=== PATIENT | female | born 1950 | race Caucasian/White ===

== ENCOUNTER 2017-03-04 10:39 | Emergency (ER) | payer MEDICARE, OTHER ==
[~2017-03-04] VITALS: Ht 160 cm; Wt 98.4 kg
[~2017-03-04 10:39] MED LIST: METFORMIN500 MG PO; POLYTRIM 1000010 ML OPH; TOPROL XL25 MG PO
[2017-03-04] MEDS ORDERED: AMARYL2 MG PO (10:48)
[2017-03-04] MEDS ORDERED: VITAMIN D32000 UNI1 PO (10:48)
[2017-03-04] MEDS ORDERED: CLOTRIMAZOLE V (10:49)
[2017-03-04] MEDS ORDERED: ZOLOFT25 MG PO (10:49)
[2017-03-04] MEDS ORDERED: DOXYCYCLINE100 M3 PO (10:50)
[2017-03-04] MEDS ORDERED: BETAMETHASONE D0.05% (10:50)
[2017-03-04] MEDS ORDERED: BACTROBAN OINT0.9 GM T (10:50)
[2017-03-04] MEDS ORDERED: PREDNISONE5 MG PO (10:51)
[2017-03-04] MEDS ORDERED: CIPRODEX 0.3%-7.5 ML OT (10:59)
== END 2017-03-04 11:50 | disposition home or self-care (01) ==
LOC: ED 10:39
DX: H10.9 Unspecified conjunctivitis (principal); Z88.0 Allergy status to penicillin; Z79.899 Other long term (current) drug therapy

== ENCOUNTER 2019-08-30 09:20 | Emergency (ER) | payer MEDICARE, OTHER ==
[~2019-08-30] VITALS: Ht 160 cm; Wt 91.6 kg
[~2019-08-30 09:20] MED LIST changes: +AMARYL2 MG PO; +BACTROBAN OINT0.9 GM T; +BETAMETHASONE D0.05%; +CIPRODEX 0.3%-7.5 ML OT; +CLOTRIMAZOLE V; +DOXYCYCLINE100 M3 PO; +PREDNISONE5 MG PO; +VITAMIN D32000 UNI1 PO; +ZOLOFT25 MG PO
[2019-08-30] MEDS ORDERED: KEFLEX500 M1 PO (10:02)
[2019-08-30] MEDS ORDERED: BLEPH OPH (10:02)
== END 2019-08-30 10:20 | disposition home or self-care (01) ==
LOC: ED 09:20
DX: L03.213 Periorbital cellulitis (principal); Z88.0 Allergy status to penicillin; Z79.2 Long term (current) use of antibiotics; Z79.899 Other long term (current) drug therapy

== ENCOUNTER → 2023-05-05 | Outpatient (CLI) | payer OTHER ==
[~2023-05-05] MED LIST changes: +BLEPH OPH; +KEFLEX500 M1 PO
== END | disposition home or self-care (01) ==
LOC: RESCLI 14:43
PROVIDERS: ATTEND Internal Medicine
DX: E11.9 Type 2 diabetes mellitus without complications (principal); L30.9 Dermatitis, unspecified; E11.40 Type 2 diabetes mellitus with diabetic neuropathy, unspecified; I10 Essential (primary) hypertension; M19.90 Unspecified osteoarthritis, unspecified site; K21.9 Gastro-esophageal reflux disease without esophagitis; E78.5 Hyperlipidemia, unspecified; Z88.0 Allergy status to penicillin; Z79.899 Other long term (current) drug therapy

== ENCOUNTER 2023-12-07 18:14 | Emergency (ER) | payer OTHER ==
[~2023-12-07] VITALS: Ht 165.1 cm; Wt 85.3 kg
[2023-12-07] MEDS ORDERED: ACETAMINOPHEN 325 MG TAB PO ONE (18:55)
[2023-12-07] MEDS ORDERED: Cyclobenzaprine Hydrochlorid 10 MG TAB PO ONE (18:55)
[2023-12-07] MEDS ORDERED: methylPREDNISolone sod succ 125 MG VIAL IM ONE (18:55)
[2023-12-07 19:30] LABS: BILIRUBIN Negative (Negative); BLOOD Negative (Negative); CLARITY Clear (Clear); COLOR Yellow (Yellow); GLUCOSE 3+ (Negative); KETONE Negative (Negative); LEUKO ESTERASE Trace (Negative); NITRITE Negative (Negative); PH 5.5 (4.5-8.0); SPECIFIC GRAVITY >= 1.030 (1.001-1.030); UROBILINOGEN 0.2 E.U./dl (0.0-1.0)
[2023-12-07 19:42] LABS: BACTERIA 1+; RBC 0-2 rbc/hpf (0-2); WBC 16-20 wbc/hpf (0-5)
[2023-12-07] MEDS ORDERED: PREDNISONE10 MG PO (20:02)
[2023-12-07] MEDS ORDERED: CYCLOBENZAPRINE5 M3 PO (20:02)
== END 2023-12-07 20:08 | disposition home or self-care (01) ==
LOC: ED 18:14
PROVIDERS: Physician Assistant Medical
DX: S39.012A Strain of muscle, fascia and tendon of lower back, initial encounter (principal); E78.5 Hyperlipidemia, unspecified; E11.22 Type 2 diabetes mellitus with diabetic chronic kidney disease; I12.9 Hypertensive chronic kidney disease with stage 1 through stage 4 chronic kidney disease, or unspecified chronic kidney disease; N18.9 Chronic kidney disease, unspecified; M19.90 Unspecified osteoarthritis, unspecified site; K21.9 Gastro-esophageal reflux disease without esophagitis; Z88.0 Allergy status to penicillin; Z90.710 Acquired absence of both cervix and uterus; Z98.890 Other specified postprocedural states; X50.0XXA Overexertion from strenuous movement or load, initial encounter; Y93.89 Activity, other specified; Y92.009 Unspecified place in unspecified non-institutional (private) residence as the place of occurrence of the external cause; Y99.8 Other external cause status

== ENCOUNTER 2024-10-28 03:59 | Emergency (ER) | payer OTHER ==
[~2024-10-28] VITALS: Ht 160 cm; Wt 86.8 kg
[~2024-10-28 03:59] MED LIST changes: +CYCLOBENZAPRINE5 M3 PO; +PREDNISONE10 MG PO
[2024-10-28] MEDS ORDERED: CETRAXAL1 EACH OT (04:35)
== END 2024-10-28 04:45 | disposition home or self-care (01) ==
LOC: ED 03:59
DX: H72.91 Unspecified perforation of tympanic membrane, right ear (principal); M19.90 Unspecified osteoarthritis, unspecified site; I10 Essential (primary) hypertension; E11.9 Type 2 diabetes mellitus without complications; K21.9 Gastro-esophageal reflux disease without esophagitis; Z88.0 Allergy status to penicillin; Z90.710 Acquired absence of both cervix and uterus; Z98.890 Other specified postprocedural states